=== PATIENT | female | born 1975 | race Caucasian/White ===

== ENCOUNTER 2025-03-13 10:27 | Emergency (ER) | payer OTHER, SELFPAY ==
[2025-03-13] VITALS (45 sets, daily range): BP systolic 121–188; BP diastolic 65–105; PULSE 59–93; RESP 11–24; TEMP 36.3; O2SAT 96–100
--- NOTE | ~2025-03-13 | XR_ITS ---
EXAMINATION: XR chest 1V portable DATE: 03/13/2025 13:54 INDICATION: Heart palpitations TECHNIQUE: frontal view of the chest was obtained. COMPARISON: None FINDINGS: The lungs are clear with no focal airspace opacities, pulmonary edema, pleural effusion or pneumothorax. The cardiomediastinal silhouette is normal. Visualized bones and soft tissues are unremarkable. IMPRESSION: 1. No acute cardiopulmonary disease. Reviewed, dictated and finalized at location A.
--- OUTSIDE RECORDS SUMMARY | 2025-03-13 10:30 | XMS_ITS | Clinical Summary ---
Author Organization [facility] Address [address] [place] [phone] Phone Care Team Providers Care Cabbage Salter Name Role Phone Provider, None Primary Care Provider Unavailabl e Allergies No known active allergies Medications Loratadine (CLARITIN PO) Take by mouth. Active Pseudoephedrine HCl (SUDAFED PO) Take by mouth. Active SPRINTEC 28 0.25-35 MG-MCG Tablet TAKE 1 TABLET BY MOUTH ONCE DAILY DIRECTED 2 9 Active predniSONE (DELTASONE) 10 MG TabletIndication s:Bilateral hearing loss, unspecified hearing loss type Take 5 tablets by mouth with food today, then 4 tomorrow, then 3, then 2, then 1 15 Tab 9 Active meclizine (ANTIVERT) 25 MG TabletIndication s:Vertigo Take 1 Tab by mouth 3 times daily as needed for Dizziness. 60 Tab 9 Active triamcinolone (KENALOG) 0.1 % CreamIndications :Rash and nonspecific skin eruption Apply small amount to Right lower abdomen three times daily 30 g 1 9 Active Active Problems No known active problems Social History Tobacco Use Types Packs/Day Years Used Date Smoking Tobacco: Never Smokeless Tobacco: Never Comments No Sex and Gender Information Value Date Recorded Sex Assigned at Not on file Legal Sex Female 11:49 PM CDT Gender Identity Not on file Sexual Orientation Not on file Last Filed Vital Signs Vital Sign Reading Time Taken Comments Blood Pressure 134/70 04/18/2019 12:59 PM CDT Pulse 53 04/18/2019 12:59 PM CDT Temperature 36.8 C (98.3 F) 04/18/2019 12:59 PM CDT Respiratory Rate 20 04/18/2019 12:59 PM CDT Oxygen Saturation 97% 04/18/2019 12:59 PM CDT Inhaled Oxygen Concentration - - Weight - - Height - - Body Mass Index - - Plan of Treatment Health Maintenance Due Date Last Done Comments Hepatitis C Virus (HCV) Screening 1975 TdaP Immunization 1975 Hepatitis B Immunization (1 of 3 - 19+ 3-dose series) 1994 Pap Smear 1996 Cervical Cancer Screening (CCS) 2005 HPV/Cotest 2005 Cologuard 2020 Colonoscopy 2020 Colorectal Cancer Screening 2020 Immunochemical Fecal Occult Blood 2020 SARS-COV-2 Immunization (2023- season) 2024 Influenza Immunization (#1) 2025 Respiratory Syncytial Virus (RSV) Immunization (Adult) (1 - 1-dose 75+ series) 2050 Human Papillomavirus (HPV) Immunization Aged Out No longer eligible b ased on patient's age to complete this topic Meningococcal Immunization (ACWY) Aged Out No longer eligible based on patient's age to complete this topic Pneumococcal Immunization Combined Aged Out No longer eligible based on patient's age to complete this topic Rotavirus Immunization Aged Out No lo nger eligible based on patient's age to complete this topic Care Teams Cabbage Salter Relationship Specialty Start Date End Date Provider, None [place] PCP - General 04/18/19
--- OUTSIDE RECORDS SUMMARY | 2025-03-13 10:30 | XMS_ITS | Clinical Summary ---
Author Organization [facility] Address [address] [place] [id number] Care Team Providers Care Leather Heel Breaster Name Role Phone Jama Mccormack MD Primary Care Provider [phone] Allergies No known active allergies Medications Sprintec, 28, 0.25-35 mg-mcg per tablet TAKE 1 TABLET BY MOUTH ONCE DAILY DIRECTED 08/24/2019 Active Active Problems No known active problems Social History Tobacco Use Types Packs/Day Years Used Date Smoking Tobacco: Never Assessed Comments Unknown Sex and Gender Information Value Date Recorded Sex Assigned at Not on file Legal Sex Female 11:47 AM [employer] Gender Identity Not on file Sexual Orientation Not on file Obstetrics History Para Term AB IAB SAB Ectopic Multiple Livin g Live Births 3 3 3 Date Outcome GA Total Labor Labor/2nd/3rd Weight Sex Type Anes PTL Laxmi A1 A5 Name Clin Term Term Term Plan of Treatment Health Maintenance Due Date Last Done Comments Cervical Cancer Screening 1975 Colon Cancer Screening-Colonoscopy 1975 Depression Screening 1975 Hepatitis C Screening 1975 Hepatitis B Screening 1993 Regular Well Visit/Exam 18-64 1993 Breast Cancer Screening-Mammogram 04/10/2023 022 Influenza Vaccine (#1) 2025 DTaP/Tdap/Td Vaccine (2 - Td or Tdap) 08/24/2029 08/24/2019 Pneumococcal vaccine <65 Aged Out No longer eligible based on patient's age to complete this topic Procedures Procedure Name Priority Date/Time Associated Diagnosis Comments SCREENING MAMMOGRAM BILATERAL W EUGENE Schedule Routine, Read Routine (OP Routine) 04/10/2022 12:50 PM CDT Screening mammogram, encounter for from Last 3 Months or Most Recently Relevant to Health Maintenance Results * Screening Mammogram Bilateral W Eugene (04/10/2022 12:50 PM CDT) Anatomical Region Laterality Modality Breast Bilateral Mammography 04/10/2022 2:47 PM CDT Impressions 04/10/2022 2:47 PM CDT There is no mammographic evidence of malignancy. A 1 year screening mammogram is recommended. BI-RADS: 1 - Negative. The patient has been or will be contacted. The patient will be entered into a reminder system with a target due date of 1 year for her next mammogram. Electronically signed by: Tang Irvin M.D. Narrative 04/10/2022 2:47 PM CDT EXAMINATION: SCREENING MAMMOGRAM BILATERAL W EUGENE ORDERING HEALTHCARE PROVIDER: SELF SCREENING MAMMOGRAM HISTORY: Routine screening mammography. COMPARISON: None available. Baseline screening mammogram. TECHNIQUE: CC and MLO views of the bilateral breasts were obtained with digital technique using breast tomosynthesis with C view. Computer aided detection was utilized. FINDINGS: DENSITY: The tissue of the bilateral breasts is heterogeneously dense, which may obscure small masses. BREASTS: There are no suspicious masses, suspicious calcifications, or other suspicious findings in either breast. There has been no suspicious interval change. us Self Screening Mammogram IMG MAMMO PROCEDURES Fi nal Result from Last 3 Months or Most Recently Relevant to Health Maintenance [place] Care Teams Leather Heel Breaster Relationship Specialty Start Date End Date Jama Mccormack MD PCP - General Internal Medicine 09/22/19
[2025-03-13] MEDS: LORazepam (*CRX) 1 MG TABLET PO (11:36)
--- OUTSIDE RECORDS SUMMARY | 2025-03-13 12:20 | XMS_ITS | Clinical Summary ---
Author Organization [facility] Address [address] [place] [id number] Care Team Providers Care Justowriter Operator Name Role Phone Jama Mccormack MD Primary Care Provider [phone] Allergies No known active allergies Medications Sprintec, 28, 0.25-35 mg-mcg per tablet TAKE 1 TABLET BY MOUTH ONCE DAILY DIRECTED 08/24/2019 Active Active Problems No known active problems Social History Tobacco Use Types Packs/Day Years Used Date Smoking Tobacco: Never Assessed Comments Unknown Sex and Gender Information Value Date Recorded Sex Assigned at Not on file Legal Sex Female 11:47 AM [employer]ER [employer] Gender Identity Not on file Sexual Orientation [...] [place] Care Teams Justowriter Operator Relationship Specialty Start Date End Date Jama Mccormack MD PCP - General Internal Medicine 09/22/19
--- NOTE | 2025-03-13 12:59 | ECG_ITS ---
Test Date: 2025-03-13 13:27:09 Measurements Intervals [place] Rate: 63 P: 36 [place]: 143 QRS: 67 QRSD: 90 T: 40 QT: 458 QTc: 471 Interpretive Statements SINUS RHYTHM CANNOT R/O SEPTAL INFARCT, AGE INDETERMINATE BORDERLINE ST ABNORMALITY- ANTEROLAT/INF LEADS ABNORMAL ECG No previous ECG available for comparison Electronically Signed On 03-13-2025 16:05:28 CDT by Percy Alex D.O.
--- NOTE | 2025-03-13 13:00 | ED.GENADULT ---
HPI - General Adult General Chief complaint: Anxiety Stated complaint: near syncope, anxiety? Time Seen by Provider: 03/13/25 11:11 History of Present Illness HPI narrative: 49-year-old female present to the emergency department for evaluation for onset of anxiety and uneasy feeling. Patient states she was calm and not anxious and resting comfortably while at [employer] when she had onset of an uneasy feeling. Patient feels he did have some rapid heart rate at that time. Patient declines heavy caffeine intake. Patient does report adequate water intake. Patient does follow-up balanced diet. Patient denies any prior history of cardiac arrhythmia or anxiety. Patient does feel improved in the emergency department. Related Data Allergies Allergy/AdvReac Type Severity Reaction Status Date / Time No Known Allergies Allergy Verified 03/13/25 10:36 Review of Systems Review of Systems: All systems reviewed & are unremarkable except as noted in HPI and below PMFSH Social History Social History Substance use type: does not use Exam Narrative: APPEARANCE: Well appearing, no pain, no distress, well-nourished. HEAD: normocephalic, atraumatic. EYES: PERRLA/EOMI, conjunctivae clear. NOSE: Normal no drainage EARS:TMS clear with good light reflex. THROAT: Pharynx clear, no exudate. NECK: Supple. No adenopathy, no masses. RESPIRATORY: Airway patent, respirations nonlabored. Clear to auscultation bilaterally, no rales, rhonchi, wheezing. CARDIOVASCULAR: Regular rate and rhythm without murmurs rubs or gallops. ABDOMINAL: Soft, nontender, nondistended, normal bowel sounds MUSCULOSKELETAL: Moves all extremities. Strength/ROM intact, No edema, No calf tenderness. NEURO: Alert. Cranial nerves II through XII intact. Good gait. Good coordination SKIN: Warm, dry. Normal Color Course Vital Signs Vital signs: Vital Signs Temperature 97.4 F L 03/13/25 10:37 Pulse Rate 77 03/13/25 10:37 Respiratory Rate 20 03/13/25 10:37 Blood Pressure 187/96 H 03/13/25 10:37 Pulse Oximetry 100 03/13/25 10:37 Oxygen Delivery Room Air 03/13/25 10:37 Temperature 97.4 F L 03/13/25 10:37 Pulse Rate 67 03/13/25 16:23 Respiratory Rate 20 03/13/25 16:23 Blood Pressure 128/66 08/31/25 16:23 Pulse Oximetry 100 03/13/25 16:23 Oxygen Delivery Room Air 03/13/25 10:37 Medical Decision Making MDM Narrative Medical decision making narrative: 49-year-old female presented to the emergency department for evaluation for increased anxiety heart palpitations that occurred today while at discharge. Patient reports her symptoms have improved. Patient reports while she in the emergency department she did have additional episodes but patient had no changes in her vital signs during these episodes. Patient is currently afebrile no leukocytosis hemoglobin of 12.7. Patient has no acute abnormalities on her CMP patient's TSH is within normal limits. Patient's Mag is also within normal limits. Chest x-ray shows no acute cardiopulmonary abnormality. Patient's EKG shows normal sinus rhythm. On re-evaluation patient states that she does feel improved. Patient will be discharged home with Ativan for p.r.n. and instructions to have follow-up with her primary care physician for an outpatient Holter monitor. Patient's symptoms may be related to primary anxiety or secondary to heart palpitations and subsequent anxiety. Patient was encouraged to increase her water intake decrease her caffeine intake and to have close follow-up. Differential Diagnosis Differential Diagnosis: Anxiety, heart palpitations, AFib, SVT, PVCs, pneumonia, pulmonary embolism Vital Signs Vital Signs: Vital Signs Temperature 97.4 F L 03/13/25 10:37 Pulse Rate 77 03/13/25 10:37 Respiratory Rate 20 03/13/25 10:37 Blood Pressure 187/96 H 03/13/25 10:37 Pulse Oximetry 100 03/13/25 10:37 Oxygen Delivery Room Air 03/13/25 10:37 Temperature 97.4 F L 03/13/25 10:37 Pulse Rate 67 03/13/25 16:23 Respiratory Rate 20 03/13/25 16:23 Blood Pressure 128/66 03/13/25 16:23 Pulse Oximetry 100 03/13/25 16:23 Oxygen Delivery Room Air 03/13/25 10:37 Lab Data 03/13/25 13:22 03/13/25 13:22 Labs: Lab Results 03/13/25 Range/Units 13:22 WBC 10.7 H (4.5-10.0) K/mm3 RBC 4.02 L (4.2-5.4) M/mm3 Hgb 12.7 (12.0-15.0) g/dL Hct 37.2 (37.0-47.0) % MCV 92.5 (80-100) fl MCH 31.6 (26-34) pg MCHC 34.1 (32-36) g/dl RDW 12.3 (11.5-14.5) % Plt Count 276 (150-375) k/mm3 MPV 11.1 H (7.4-10.4) fl Immature Gran % (Auto) 0.3 (0-0.5) % Neut % (Auto) 77.8 H (45.5-73.1) % Lymph % (Auto) 18.0 L (18.3-44.2) % [place]cock % (Auto) 3.6 (2.6-8.5) % Eos % (Auto) 0.0 (0-4.4) % Baso % (Auto) 0.3 (0.2-1.2) % Lymph # (Auto) 1.93 (0.9-3.2) K/mm3 Glasscock # (Auto) 0.4 (0.1-0.6) K/mm3 Eos # (Auto) 0.0 (0-0.3) K/mm3 Baso # (Auto) 0.0 (0.0-0.1) K/mm3 Abs Immat Gran (auto) 0.03 (0.00-0.031) K/mm3 Absolute Neuts (auto) 8.4 H (1.3-6.7) K/mm3 Absolute Nucleated RBC 0.000 (0.0-0.012) K/mm3 Nucleated RBC % 0.0 (0.0-0.2) % Sodium 138 (137-145) mmol/L Potassium 3.8 (3.4-5.0) mmol/L Chloride 111 H (98-107) mmol/L Carbon Dioxide 19 L (22-30) mmol/L Anion Gap 8 (4-12) mmol/L BUN 13 (7-17) mg/dL Creatinine 0.81 (0.7-1.0) mg/dL Estim Creat Clear Calc 53 ml/min Estimated GFR > 60 (59 - ) Glucose 96 (65-110) mg/dL Calcium 9.5 (8.4-10.2) mg/dL Magnesium 1.8 (1.6-2.3) mg/dL Total Bilirubin 0.9 (0.2-1.3) mg/dL AST 29 (14-36) U/L ALT 17 (6-35) U/L Alkaline Phosphatase 70 (38-126) U/L Total Protein 7.5 (6.3-8.2) g/dL Albumin 4.4 (3.5-5.1) g/dL TSH (Reflex) 2.300 (0.465-4.68) uIU/mL Discharge Plan Discharge Clinical Impression: Acute anxiety, Heart palpitations Patient Disposition: Home Condition: Stable Instructions: Antibiotic Form, Heart Palpitations (DC) Additional Instructions: Increase your water intake, decrease your caffeine intake. Ativan as needed for anxiety. Have close follow-up with your primary care physician for an outpatient Holter monitor. If you have any worsening symptoms please call or return to the emergency department. Patient Language: Tristanian Prescriptions: New lorazepam [Ativan] 0.5 mg tablet 0.5 mg PO TID PRN (Reason: anxiety) Qty: 14 0RF Follow-up/Referrals: Jama Mccormack MD [Primary Care Provider, Internal Medicine]
[2025-03-13 13:30] LABS: Hematocrit 37.2 % (37.0-47.0); Hemoglobin 12.7 g/dL (12.0-15.0); Immature Granulocyte Percent A 0.3 % (0-0.5); Lymphocytes Absolute Auto 1.93 K/mm3 (0.9-3.2); Mean Corpuscular HGB Conc 34.1 g/dl (32-36); Mean Corpuscular Hemoglobin 31.6 pg (26-34); Mean Corpuscular Volume 92.5 fl (80-100); Nucleated Red Blood Cells Absolute Auto 0.000 K/mm3 (0.0-0.012); Nucleated Red Blood Cells Perc 0.0 % (0.0-0.2); Platelet Count Result 276 k/mm3 (150-375); Red Blood Count 4.02 M/mm3 (4.2-5.4); White Blood Count 10.7 K/mm3 (4.5-10.0)
[2025-03-13 13:43] LABS: Alanine Aminotransferase 17 U/L (6-35); Albumin Level 4.4 g/dL (3.5-5.1); Alkaline Phosphatase 70 U/L (38-126); Anion Gap 8 mmol/L (4-12); Aspartate Amino Transferase 29 U/L (14-36); Bilirubin,Total 0.9 mg/dL (0.2-1.3); Blood Urea Nitrogen 13 mg/dL (7-17); Calcium 9.5 mg/dL (8.4-10.2); Carbon Dioxide 19 mmol/L (22-30); Chloride 111 mmol/L (98-107); Estimated CRCL calculation 53 ml/min; Estimated Glomerular Filt Rate > 60; Glucose 96 mg/dL (65-110); Magnesium 1.8 mg/dL (1.6-2.3); Potassium 3.8 mmol/L (3.4-5.0); Sodium 138 mmol/L (137-145); Total Protein 7.5 g/dL (6.3-8.2)
[2025-03-13 14:12] LABS: Thyroid Stimulating Hormone Reflex 2.300 uIU/mL (0.465-4.68)
== END 2025-03-13 16:24 | disposition home or self-care (01) ==
PROVIDERS: Emergency Provider Emergency Medicine; PCP Internal Medicine
DX: F41.9 Anxiety disorder, unspecified (principal); R00.2 Palpitations
CPT/HCPCS: 36415; 71045; 80053; 83735; 84443; 85025; 93005; 99283; A9270

== ENCOUNTER 2025-04-29 09:22 | Outpatient (CLI) | payer OTHER, SELFPAY ==
--- NOTE | ~2025-04-29 | CT_ITS ---
EXAMINATION: CT sinus wo con DATE: 04/29/2025 09:40 INDICATION: Chronic sinusitis TECHNIQUE: Computed tomography (CT) of the paranasal sinuses was performed without intravenous contrast. The dose-length product was 290.62 mGy-cm. Automated exposure control and iterative reconstruction technique were employed. COMPARISON: None FINDINGS: Paranasal sinuses and mastoids are pneumatized. No significant mucosal thickening or air-fluid level. Small mucous retention cyst left maxillary sinus. Leftward nasal septal deviation. Ostiomeatal units are patent. IMPRESSION: 1. No significant sinus disease. Reviewed, dictated and finalized at location O.
== END 2025-04-29 09:23 | disposition home or self-care (01) ==
LOC: MICIMG 09:23
PROVIDERS: PCP Internal Medicine; Visit Provider Internal Medicine
DX: J32.9 Chronic sinusitis, unspecified (principal)
CPT/HCPCS: 70486